=== PATIENT | female | born 1985 | race African-American/Black ===

== ENCOUNTER 2022-07-02 02:16 | Emergency (ER) | payer OTHER, SELFPAY ==
--- NOTE | 2022-07-02 04:12 | ED.GENADULT ---
HPI - General Adult General Stated complaint: Sore Thoat Time Seen by Provider: 07/02/22 04:11 History of Present Illness HPI narrative: Patient is a 37-year-old female that presents the emergency department with chief complaint of sore throat. Patient states that she has had pain with swallowing for the last 2 days not had a fever or shortness of breath. The patient reports no COVID exposure reports she has had a hysterectomy in the past. Patient states she still able to swallow her own secretions Related Data Allergies Allergy/AdvReac Type Severity Reaction Status Date / Time No Known Allergies Allergy Verified 07/02/22 04:15 Review of Systems Review of Systems: A 10 system review of systems was completed on the patient and is negative except for what is stated in the HPI. Nursing and ancillary documentation was reviewed. Exam Narrative: GENERAL: Well-appearing, well-nourished, and in no acute distress. HEAD: Normocephalic, atraumatic. EYES: PERRLA and EOMI. ENT: Nares clear, no rhinorrhea or epistaxis. Mucous membranes moist. NECK: Supple. CHEST: Clear to auscultation. No respiratory distress. HEART: Regular rate and rhythm. No murmur heard. Normal peripheral pulses. ABDOMEN: Soft, nontender, nondistended, normal active bowel sounds. EXTREMITIES: Normal range of motion. No edema. SKIN: Warm, dry, no rash. NEURO: No focal deficits. Alert and oriented x3. PSYCH: Normal mood and affect. Discharge Plan Discharge Clinical Impression: Acute viral pharyngitis Patient Disposition: Home, Self-Care Condition: Stable Instructions: Antibiotic Form, Pharyngitis (ED) Prescriptions: New prednisone 20 mg tablet 40 mg PO DAILY 5 Days Qty: 10 0RF Follow-up/Referrals: ShreyasErnie M.D. [Primary Care Provider] - Time of Disposition: 04:17
[2022-07-02 04:22] VITALS: BP 129/95; PULSE 89; RESP 18; O2SAT 100
== END 2022-07-02 04:22 | disposition home or self-care (01) ==
PROVIDERS: Emergency Provider Emergency Medicine; PCP Internal Medicine Infectious Disease
DX: J02.9 Acute pharyngitis, unspecified (principal); Z90.710 Acquired absence of both cervix and uterus
CPT/HCPCS: 99283

== ENCOUNTER 2022-08-04 14:51 | Emergency (ER) | payer OTHER, SELFPAY ==
--- NOTE | ~2022-08-04 | XR_ITS ---
EXAMINATION: XR chest 2V DATE: 08/04/2022 15:21 INDICATION: Painful respirations. IVC filter. TECHNIQUE: PA and lateral views of the chest were obtained. COMPARISON: Chest radiograph dated 11/16/[address] abdomen and pelvis dated 10/08/2021 FINDINGS: The lungs remain clear with no focal airspace opacities, pulmonary edema, pleural effusion or pneumot horax. The cardiomediastinal silhouette is normal. The cephalad tip of an IVC filter remains at the l evel of L1. Mild thoracolumbar levocurvature with chronic T12 compression fracture with 20% right-cass ed vertebral body height loss. IMPRESSION: 1. No acute cardiopulmonary disease. 2. IVC filter in unchanged position with cephalad tip at the level of L1. Reviewed, dictated and finalized at location A.
--- NOTE | 2022-08-04 14:54 | ECG_ITS ---
Measurements Intervals [place] Rate: 97 P: 51 TN: 131 QRS: 22 QRSD: 94 T: 21 QT: 330 QTc: 420 Interpretive Statements SINUS RHYTHM NONSPECIFIC T-WAVE ABNORMALITY CANNOT RULE OUT ANTERIOR INFARCTION, AGE UNDETERMINED ABNORMAL ECG NO PREVIOUS ECG AVAILABLE FOR COMPARISON Electronically Signed On 08-05-2022 9:29:09 CDT by Reid Terry M.D.
[2022-08-04 15:01] VITALS: BP 130/82; PULSE 98; RESP 20; TEMP 36.4; O2SAT 100
[2022-08-04 15:14] LABS: Basophils Percent Auto 0.4 % (0.2-1.2); Eosinophils Absolute Auto 0.1 K/mm3 (0-0.3); Hematocrit 38.8 % (37.0-47.0); Hemoglobin 13.3 g/dL (12.0-15.0); Immature Granulocyte Absolute 0.01 K/mm3 (0.00-0.031); Immature Granulocyte Percent A 0.2 % (0-0.5); Lymphocytes Absolute Auto 1.89 K/mm3 (0.9-3.2); Lymphocytes Percent Auto 38.2 % (18.3-44.2); Mean Corpuscular HGB Conc 34.3 g/dl (32-36); Mean Corpuscular Hemoglobin 28.5 pg (26-34); Mean Corpuscular Volume 83.3 fl (80-100); Mean Platelet Volume 8.1 fl (7.4-10.4); Monocytes Absolute Auto 0.3 K/mm3 (0.1-0.6); Monocytes Percent Auto 6.5 % (2.6-8.5); Neutrophils Absolute Auto 2.7 K/mm3 (1.3-6.7); Neutrophils Percent Auto 53.7 % (45.5-73.1); Platelet Count Result 216 k/mm3 (150-375); Red Blood Count 4.66 M/mm3 (4.2-5.4); Red Cell Distribution Width 13.5 % (11.5-14.5)
[2022-08-04 15:24] LABS: Alanine Aminotransferase 28 U/L (6-35); Albumin Level 4.2 g/dL (3.5-5.1); Alkaline Phosphatase 57 U/L (38-126); Anion Gap 15 mmol/L (8-16); Aspartate Amino Transferase 22 U/L (14-36); Bilirubin,Total 0.7 mg/dL (0.2-1.3); Blood Urea Nitrogen 10 mg/dL (7-17); Carbon Dioxide 22 mmol/L (22-30); Chloride 104 mmol/L (98-107); Estimated CRCL calculation 92 ml/min; Estimated Glomerular Filt Rate > 60; Glucose 114 mg/dL (65-110); Lipase 86 U/L (23-300); Potassium 3.2 mmol/L (3.4-5.0); Sodium 141 mmol/L (137-145)
[2022-08-04 15:29] LABS: INR 1.1
[2022-08-04 15:30] LABS: Partial Thromboplastin Time 29.2 SECONDS (22.3-36.8)
[2022-08-04 15:39] LABS: Troponin I < 0.012 ng/mL (0.000-0.034)
--- NOTE | 2022-08-04 18:22 | PC.NURSE ---
patient left from triage stating wait was too long
== END 2022-08-04 18:22 | disposition left against medical advice (07) ==
PROVIDERS: Emergency Provider Emergency Medicine; PCP Internal Medicine Infectious Disease
DX: R07.1 Chest pain on breathing (principal)
CPT/HCPCS: 36415; 71046; 80053; 83690; 84484; 85025; 85610; 85730; 93005; 99199

== ENCOUNTER 2022-08-05 03:43 | Emergency (ER) | payer OTHER, SELFPAY ==
--- NOTE | ~2022-08-05 | CT_ITS ---
EXAMINATION: CTA chest PE protocol DATE: 08/05/2022 07:37 INDICATION: Left-sided chest pain TECHNIQUE: Computed tomography (CT) pulmonary angiogram of the chest was performed with 100 mL Omnipa que-350 intravenous contrast. Additional 3D reconstructions utilizing coronal maximum intensity proje ction (MIP) were performed. The dose-length product was 437.10 mGy-cm. COMPARISON: None FINDINGS: Excellent contrast opacification of the pulmonary arteries. There is mild streak artifact from dense contrast in the superior vena cava and right atrium. Mild scattered respiratory motion artifact which only minimally limits evaluation. There is a band of decreased attenuation extending across a subseg mental pulmonary artery in the posterior basilar left lower lobe with relatively sharp linear proxima l margin which appears to continue a band of streak artifact in the adjacent left atrium and favor ar tifact over pulmonary embolism. No other lesions suspicious for pulmonary emboli identified. Mild aretha ear discoid atelectasis at the anterolateral basilar segment of the right lower lobe. No pneumonia, p ulmonary edema, pleural effusion or pneumothorax. Heart size is normal. No pericardial effusion. Thor acic aorta is normal in caliber with no dissection. Visualized upper abdomen is unremarkable. Mild th oracic dextrocurvature. Infrarenal IVC filter evident on the cream hauler topogram which is not included on the CT images. IMPRESSION: 1. Mild atelectasis in the right lower lobe. No pulmonary embolism or other acute cardiopulmonary dis ease. Reviewed, dictated and finalized at location A. IMPRESSION: 1. Mild atelectasis in the right lower lobe. No pulmonary embolism or other acu te cardiopulmonary disease.
[2022-08-05 03:46] VITALS: BP 148/97; PULSE 86; RESP 14; TEMP 36.7; O2SAT 100
--- NOTE | 2022-08-05 05:14 | ECG_ITS ---
Measurements Intervals [place] Rate: 84 P: 48 TX: 132 QRS: 29 QRSD: 90 T: 24 QT: 352 QTc: 417 Interpretive Statements SINUS RHYTHM NONSPECIFIC T-WAVE ABNORMALITY ABNORMAL ECG COMPARED TO ECG 08/04/2022 14:58:31 NO SIGNIFICANT CHANGES Electronically Signed On 08-05-2022 14:54:39 CDT by Reid Terry M.D.
--- NOTE | 2022-08-05 05:21 | ED.CHESTPAIN ---
HPI - Chest Pain General Chief Complaint: Chest Pain <Ambrocio Alva MD - Last Filed: 08/05/22 07:49> Stated Complaint: chest pain <Ambrocio Alva MD - Last Filed: 08/05/22 07:49> Time Seen by Provider: 08/05/22 04:19 <Ambrocio Alva MD - Last Filed: 08/05/22 07:49> History of Present Illness HPI narrative: This is a 37-year-old female with past medical history of DVTs, presenting the emergency department complaining of dull chest pain. She states she was present earlier today with chest pain, rated 6 out of 10, aggravated by deep breathing or movement of the left arm. She states her work-up was not concerning for heart attack however she continues to have pain she denies palpitations, loss of consciousness, or shortness of breath. <Ambrocio Alva MD - Last Filed: 08/05/22 07:49> Related Data Allergies/Adverse Reactions: Allergies Allergy/AdvReac Type Severity Reaction Status Date / Time No Known Allergies Allergy Verified 08/05/22 03:44 <Ambrocio Alva MD - Last Filed: 08/05/22 07:49> Review of Systems Review of Systems: CONSTITUTIONAL: Denies fever, chills, or sweats. EYES: Denies visual changes, redness, or discharge. ENT: Denies rhinorrhea, congestion, sore throat, or otalgia. CARDIOVASCULAR: Chest pain denies palpitations, or edema. RESPIRATORY: Denies cough or dyspnea. GASTROINTESTINAL: Denies abdominal pain, nausea, vomiting, or diarrhea. GENITOURINARY: Denies dysuria or hematuria. SKIN: Denies rash or itching. MUSCULOSKELETAL: Denies back pain, joint pain, or myalgia. NEUROLOGIC: Denies headache, numbness, dizziness, or weakness. PSYCHIATRIC: Denies anxiety or depression. <Ambrocio Alva MD - Last Filed: 08/05/22 07:49> Exam Narrative: GENERAL: Well-appearing, well-nourished, and in no acute distress. HEAD: Normocephalic, atraumatic. EYES: PERRLA and EOMI. ENT: Nares clear, no rhinorrhea or epistaxis. Mucous membranes moist. Oropharynx without tonsillar hypertrophy exudate or other lesions. NECK: Supple. No adenopathy or masses. No carotid bruits or JVD CHEST: Mild tenderness to palpation over the left anterior chest wall, clear to auscultation. No respiratory distress. No wheezes rales or rhonchi HEART: Regular rate and rhythm. No murmur heard. Normal peripheral pulses. ABDOMEN: Soft, nontender, nondistended, normal active bowel sounds. EXTREMITIES: Normal range of motion. No edema. SKIN: Warm, dry, no rash. NEURO: No focal deficits. Alert and oriented x3. PSYCH: Normal mood and affect. <Ambrocio Alva MD - Last Filed: 08/05/22 07:49> Course Course Emergency Course: 07:00 - Patient signed out to oncoming physician, Dr. Liriano pending imaging. <Ambrocio Alva MD - Last Filed: 08/05/22 07:49> Reevaluation(s) Reevaluation #1: Currently patient feeling much better, denying any symptoms after having the pain shot. Currently she denies any fever, chills, nausea, vomiting, chest pain, shortness of breath or back pain. <Ursula Liriano MD - Last Filed: 08/05/22 08:54> Date: 08/05/22 <Ursula Liriano MD - Last Filed: 08/05/22 08:54> Time: 08:54 <Ursula Liriano MD - Last Filed: 08/05/22 08:54> Vital Signs Vital signs: Vital Signs Temperature 36.7 C 08/05/22 03:46 Pulse Rate 86 08/05/22 03:46 Respiratory Rate 14 08/05/22 03:46 Blood Pressure 148/97 H 08/05/22 03:46 Pulse Oximetry 100 08/05/22 03:46 Oxygen Delivery Room Air 08/05/22 03:46 Temperature 36.7 C 08/05/22 03:46 Pulse Rate 86 08/05/22 08:03 Respiratory Rate 16 08/05/22 08:03 Blood Pressure 114/77 08/05/22 08:03 Pulse Oximetry 98 08/05/22 08:03 Oxygen Delivery Room Air 08/05/22 03:46 <Ambrocio Alva MD - Last Filed: 08/05/22 07:49> Vital Signs Temperature 36.7 C 08/05/22 03:46 Pulse Rate 86 08/05/22 03:46 Respiratory Rate 14 08/05/22 03:46 Blood Pressure 148/97 H 08/05/22 03:46 Puls
[2022-08-05 05:37] LABS: Troponin I < 0.012 ng/mL (0.000-0.034)
[2022-08-05 06:54] LABS: Basophils Percent Auto 0.4 % (0.2-1.2); Eosinophils Absolute Auto 0.1 K/mm3 (0-0.3); Eosinophils Percent Auto 1.6 % (0-4.4); Hemoglobin 12.7 g/dL (12.0-15.0); Immature Granulocyte Absolute 0.01 K/mm3 (0.00-0.031); Immature Granulocyte Percent A 0.2 % (0-0.5); Lymphocytes Absolute Auto 2.27 K/mm3 (0.9-3.2); Lymphocytes Percent Auto 41.3 % (18.3-44.2); Mean Corpuscular HGB Conc 34.3 g/dl (32-36); Mean Corpuscular Hemoglobin 28.6 pg (26-34); Mean Corpuscular Volume 83.3 fl (80-100); Mean Platelet Volume 8.5 fl (7.4-10.4); Monocytes Absolute Auto 0.5 K/mm3 (0.1-0.6); Monocytes Percent Auto 8.2 % (2.6-8.5); Neutrophils Absolute Auto 2.7 K/mm3 (1.3-6.7); Neutrophils Percent Auto 48.3 % (45.5-73.1); Platelet Count Result 207 k/mm3 (150-375); Red Blood Count 4.44 M/mm3 (4.2-5.4); Red Cell Distribution Width 13.4 % (11.5-14.5); White Blood Count 5.5 K/mm3 (4.5-10.0)
[2022-08-05 07:19] LABS: Alanine Aminotransferase 32 U/L (6-35); Albumin Level 4.3 g/dL (3.5-5.1); Alkaline Phosphatase 71 U/L (38-126); Anion Gap 10 mmol/L (8-16); Aspartate Amino Transferase 32 U/L (14-36); Bilirubin,Total 0.4 mg/dL (0.2-1.3); Blood Urea Nitrogen 13 mg/dL (7-17); Calcium 8.9 mg/dL (8.4-10.2); Carbon Dioxide 24 mmol/L (22-30); Chloride 104 mmol/L (98-107); Estimated CRCL calculation 92 ml/min; Estimated Glomerular Filt Rate > 60; Glucose 98 mg/dL (65-110); Potassium 3.7 mmol/L (3.4-5.0); Sodium 138 mmol/L (137-145)
[2022-08-05 08:03] VITALS: BP 114/77; PULSE 86; RESP 16; O2SAT 98
[2022-08-05 09:28] VITALS: BP 107/79; PULSE 91; RESP 18; O2SAT 98
== END 2022-08-05 09:34 | disposition home or self-care (01) ==
PROVIDERS: Preventive Medicine Aerospace Medicine; Emergency Provider Emergency Medicine; PCP Internal Medicine Infectious Disease
DX: R07.9 Chest pain, unspecified (principal); Z86.718 Personal history of other venous thrombosis and embolism; R94.31 Abnormal electrocardiogram [ECG] [EKG]
CPT/HCPCS: 36415; 71275; 80053; 84484; 85025; 93005; 96374; 99284; J0131; Q9967